=== PATIENT | female | born 2000 | race Caucasian/White ===

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

== ENCOUNTER 2018-03-14 14:05 | Inpatient (IN) ==
[~2018-03-14 14:05] MED LIST: *HR* Nalbuphine 10 MG/ML AMPUL IVP PRN; Famotidine 20 MG/2 ML VIAL IVP PRN; Naloxone 0.4 MG/ML INJ IVP PRN; Ondansetron 4 MG/2 ML VIAL IVP PRN; miSOPROStol 100 MCG TABLET PO ONE
[2018-03-14] MEDS ORDERED: Ringers Solution, Lactated 1,000 ML IVC SCH (14:15)
[2018-03-14 14:30] LABS: Basophils % 0.3 %; Eosinophils % 0.2 %; Hemoglobin 11.8 g/dL (11.5-15.4); Immature Granulocytes % 1.5 % (0-4); Lymphocytes # 1.8 K/mcL (0.6-4.6); Lymphocytes % 13.4 %; Mean Corpuscular HGB Conc 33.7 g/dL (31.6-35.5); Mean Corpuscular Hemoglobin 26.1 pg (28.0-33.3); Mean Corpuscular Volume 77.4 fL (83.0-100.0); Mean Platelet Volume 13.6 fL (9.4-12.4); Monocytes % 7.7 %; Neutrophils # 10.1 K/mcL (1.6-8.9); Platelet Count 131 K/mcL (140-400); Red Blood Count 4.52 M/mcL (3.82-4.97); Red Cell Distribution Width 13.6 % (11.5-14.5); Segmented Neutrophils % 76.9 %
--- NOTE | 2018-03-14 14:53 | OB/GYN History & Physical ---
Date of Encounter: 03/14/18 Time of Encounter: 14:49 Assessment and Plan (1) 38 weeks gestation of Current visit: Yes Status: Acute Admitted for delivery (2) Rh negative state in antepartum period Current visit: Yes Status: Acute Rhogam evaluation following delivery (3) Spontaneous rupture of membranes Current visit: Yes Status: Acute admitted for delivery (4) Gestational diabetes mellitus treated with oral hypoglycemic therapy Current visit: Yes Status: Acute Glucose level on admission accuchecks Q 4 hours or prn History of Present Illness Chief complaint: Spontaneous rupture of membranes HPI: Ms. Hassan is a 17 year old female at 38w6d presents to labor and delivery with ruptured membranes. Patient reports she was taking a nap and had a large gush of fluid. Patient states she has continued to leak since. Patient reports water broke around 1245. Patient denies any color or odor. Patient reports contractions were getting stronger and closer together. Blood type:A negative Rubella: Immune Hep B: Non-reactive GBS: Negative Past Med Surg Social Fam HX - Past Medical History Source: patient Medical history: no medical history Psychiatric history: anxiety - Past Surgical History Surgical History: other Additional surgical history: T&A - Social History Smoking Status: Former smoker Smokeless Tobacco Status: No Alcohol use: none Drug use: none - Family History Mother Adopted: No Living Status: Still Living Hx Family Cardiac Disorders: Yes (HTN) Hx Family Respiratory Disorders: No Hx Family Cancer: No Hx Family GI Disorders: No Hx Family Endocrine Disorder: No Hx Family Neuromuscular Disorders: No Hx Family Neurologic Disorders: No Hx Family HEENT Disorders: No Hx Family Autoimmune Disorders: No Grandmother Living Status: Still Living Hx Family Cardiac Disorders: No Hx Family Respiratory Disorders: No Hx Family Cancer: No Hx Family GI Disorders: No Hx Family Genitourinary Disorders: No Hx Family Endocrine Disorder: No Hx Family Musculoskeletal Disorders: No Hx Family Neuromuscular Disorders: No Hx Family Neurologic Disorders: No Hx Family HEENT Disorders: No Hx Family Autoimmune Disorders: No Hx Family Reproductive Disorders: No Hx Family Psychosocial Disorders: No Hx Family Medical Disorders: No Obstetrical History - Pregnancies : 1 Para: 0 Term: 0 : 0 Ab's: 0 Livin Medications and Allergies Vit Calc,Iron,Folic [ Vitamins] 1 tab PO DAILY 11/14/17 [ History] Sertraline [Zoloft] 36 mg PO DAILY 11/14/17 [History] metFORMIN [Glucophage] 500 mg PO BID 03/14/18 [History] 3 Allergy/AdvReac Type Severity Reaction Status Date / Time No Known Allergies Allergy Verified 03/14/18 14:36 Review of System OB - Constitutional Constitutional ROS IM: no fever(s), no headache(s) - Cardiovascular Cardiovascular: no lightheadedness, no palpitations, no syncope - Gastrointestinal Gastrointestinal: no abdominal pain, no constipation, no diarrhea, no heartburn , no nausea, no vomiting - Genitourinary Genitourinary: vaginal discharge (per HPI), no abnormal vaginal bleeding, no dysuria, no flank pain, no urinary frequency, no urinary urgency, no vaginal odor, no vaginal pruritis Exam - Constitutional Constitutional: well developed, well nourished, no acute distress, average body habitus - HEENT HEENT: Normocephaly, Mucus Membranes Moist - Neck Neck exam: full ROM, normal inspection, supple - Lungs Respiratory exam: CTAB - Cardiovascular Cardiovascular exam: RRR, +S1, +S2 - Abdomen Abdomen: Present: bowel sounds normal, gravid, non tender - Extremities Extremities exam: full ROM, normal capillary refill, normal inspection Deep Tendon Reflex Grade: 2+ Normal - Cervix Dilation: 3 (per RN) Effacement: 80 Station: -1 - Uterus Uterus exam: Present: normal size, normal contour - Anus/Rectum Anus/Rectum: Present: normal perianal skin - Comments Comments: FHR 140 bpm moderate variability +15x15 accels no decels noted. Contractions 2.5 -3 min apart. Cat. 1 tracing Results Result Diagrams: 03/14/18 14:10 Abnormal lab results WBC 13.2 K/mcL (4.3-11.1) H 03/14/18 14:10 Hct 35.0 % (35.3-44.9) L 03/14/18 14:10 MCV 77.4 fL (83.0-100.0) L 03/14/18 14:10 MCH 26.1 pg (28.0-33.3) L 03/14/18 14:10 Plt Count 131 K/mcL (140-400) L 03/14/18 14:10 MPV 13.6 fL (9.4-12.4) H 03/14/18 14:10 Neutrophils # 10.1 K/mcL (1.6-8.9) H 03/14/18 14:10 All other labs normal. - VTE Reasons for not Prescribing Prophylaxis: Treatment not Indicated - Low risk for VTE
[2018-03-14 14:57] LABS: Glucose 100 mg/dL (70-105)
[2018-03-14 15:01] LABS: Amphetamine Screen,Urine Negative ng/mL (Cutoff=1000); Barbiturate Screen,Urine Negative ng/mL (Cutoff=200); Benzodiazepines Screen,Urine Negative ng/mL (Cutoff=200); Cannabinoid Screen,Urine Negative ng/mL (Cutoff = 50); Opiate Screen,Urine Negative ng/mL (Cutoff=300); Phencyclidine Screen,Urine Negative ng/mL (Cutoff=25)
[2018-03-14 15:35] LABS: Cocaine Screen,Urine Negative ng/mL (Cutoff= 300)
[2018-03-14] MEDS ORDERED: Bupivacaine-MPF 0.25% 10 ML VIAL EP ONE (16:02)
[2018-03-14] MEDS ORDERED: *HR* FentaNYL (PF) 100 MCG/2 ML VIAL EP ONE (16:02)
[2018-03-14] MEDS ORDERED: *HR* FentaNYL (PF) 100 MCG/2 ML VIAL ONE (16:13)
[2018-03-14] MEDS ORDERED: Lidocaine -MPF 2% 5 ML VIAL ONE (16:13)
[2018-03-14] MEDS ORDERED: Bupivacaine-MPF 0.25% 10 ML VIAL ONE (16:13)
[2018-03-14] MEDS ORDERED: Epidural Premix (fent/bupiv) 110 ML EP SCH (16:15)
--- NOTE | 2018-03-14 16:49 | Anesthesia Evaluation PreOp ---
Date of Encounter: 03/14/18 Time of Encounter: 16:04 - Past History Planned Operation: labor epidural Cardiac History: Denies any Significant Hx Pulmonary History: Former smoker (smoked for 5-6 years prior to . Denies any disease.) [employer]DD [employer] WORKER History: Other (anxiety/depression.) Other Medical History: Denies Any Significant HX Anesthesia History: No Prior Anesthetic Complications (never had GA. No family history of problems with anesthesia.) : Yes Alcohol Use: none Drug use: none Medications and Allergies Vit Calc,Iron,Folic [ Vitamins] 1 tab PO DAILY 11/14/17 [ History] Sertraline [Zoloft] 36 mg PO DAILY 11/14/17 [History] metFORMIN [Glucophage] 500 mg PO BID 03/14/18 [History] 3 Allergy/AdvReac Type Severity Reaction Status Date / Time No Known Allergies Allergy Verified 03/14/18 14:36 - Meds/Allergy Pre-op Review Medications Reviewed: Yes Allergies Reviewed: Yes Beta Blockers on Current Med List: No Anesthesia Results - Labs 03/14/18 14:10 03/14/18 14:10 Anesthesia Exam 146/99, 109, 18. FHTs 120s. Height: 5'8" Weight: 107kg NPO (# of Hours): >8 Pain Scale: 9 Pain Scale Used: Numeric (1 - 10) - HEENT Pupil (Motor): Pupils equal Mallampati: II Teeth: Normal Oral Opening: Greater than 3 - ODD [employer] WORK[employer] LOC: Oriented ODD [employer] WORKER Motor: Normal RUE, Normal LUE, Normal RLE, Normal LLE, Normal Face ODD [employer] WORK[employer] Sensory: Normal: RUE, LUE, RLE, LLE, Face - Cardiac Rhythm: Regular - Pulmonary Breath Sounds: bilateral Clear Respiratory Effort: Symmetrical Anesthesia Assess/Plan ASA Score: 3 Modified Adah Scale for Level of Consciousness: Cooperative, oriented, and tranquil Anesthetic Plan: Regional Monitoring Plan: Standard Monitors
--- NOTE | 2018-03-14 16:55 | Anesthesia Procedures ---
Date of Encounter: 03/14/18 Time of Encounter: 16:16 Procedures: Anesthesia - Epidural/Spinal Patient ID/Chart reviewed: Yes Patient examined: Yes OB Eval: Gestational age: 38 OB Eval: : 1 OB Eval: Hx Para: 0 OB Eval: Dilated at (cm): 3 OB Eval: Contractions: Non-stressed pattern Consent Obtained: Yes Supplemental Oxygen: None/Room Air Site Prep: Aseptic Technique, Sterile prep and drape, Povidone-Iodine 1% Patient position: upright Local Anesthetic: Lidocaine 1% Amount of Local Anesthetic used: 5 Touhy Needle Gauge: 18 Touhy Needle Depth (cm): 8 Catheter Depth at Skin (cm): 20 Test Dose (1.5% Lido + Epi): Volume given (mls): 3 Test Dose Result: Negative Loading Dose: 0.25% Marcaine (mls): 8 Loading Dose: Fentanyl (mcg): 100 Loading Dose Administered: Thru Catheter Infusion Med: 0.125% Bupivacaine w/ 2 mcg/ml Fentanyl Infusion Rate (mls/hr): [address]: Tegaderm, Tape Interspace Used: L3-L4 Loss of Resistance (UNRULY): Yes Blood: No CSF: No Paresthesia: No Vitals + FHT's: 3 Vital Signs Time 1616 1635 1640 1645 BP 146/99 143/83 140/83 128/72 Pulse 109 126 97 96 FHTs 130 120 120 120
[2018-03-14] MEDS ORDERED: Oxytocin 20 units/ LR 1000 mL 20 UNIT/1,000 ML BAG IVC SCH (18:15)
[2018-03-14 19:02] LABS: Alanine Aminotransferase 5 Units/L (7-52); Aspartate Amino Transferase 12 Units/L (13-39); BUN/Creatinine Ratio 15 (6-26); Blood Urea Nitrogen 10 mg/dL (6-20); Lactate Dehydrogenase 162 Units/L (140-271); Uric Acid 4.5 mg/dL (2.3-7.6); eGFR For Non-African Americans > 60
--- NOTE | 2018-03-14 19:52 | OB Labor Progress Note ---
Date of Encounter: 03/14/18 Time of Encounter: 19:35 Labor Progress Note - Subjective Subjective: Patient resting. Patient denies any pain at this time. - Cervix Cervix: 7/100/0 - Heart Tones Heart Tones: 135 bpm moderate variability +15x15 accels no decels noted. Cat. 1 tracing. - [place]: 3-3.5 min apart - Interventions Interventions: SVE, patient repositioned - Plan Plan: Continue labor management. anticipate
--- NOTE | 2018-03-14 21:41 | OB/GYN Procedure Note ---
Delivery - Delivery Date: 03/14/18 Provider: Renee Salmon Intrapartum events: none Delivery induction: none Delivery augmentation: pitocin Delivery monitor: external FHT, internal uterine Anesthesia: epidural Quantitated Blood Loss: 400 - (s) A Infant Delivery Date: 03/14/18 Delivery Time: 21:09 Presentation: vertex Position: LUZ MARINA Route of delivery: Gender: Female Viability: Viable Pounds: 8 Ounces: 9 Weight Gram: 3875 kg at 1 minute: 8 at 5 mins: 9 Shoulder Dystocia: not encountered Specimens collected: cord blood Placenta: spontaneous, uterine exploration Cord: nuchal cord (X2), 3 umbilical vessels, delivered through nuchal - Repair Episiotomy: none Laceration Description: Periurethral (left periurethral ) - Complications Delivery complications: none - Disposition Mom disposition: stable in LDR [place] disposition: stable in LDR - Comments Comments: Called to LDR patient complete and +2 station. Patient placed in stirrups and prepped for vaginal delivery. Under maternal effort patient spontaneously delivered a viable female infant over an intact perineum. A nuchal cord x2 noted patient delivered through, no shoulder dystocia or meconium was encountered. Infant was placed on maternal abdomen. A left periurethral was noted and repaired with 3-0 vicryl. Cord was clamped and cut after pulsations ceased. Cord blood was collected. Placenta delivered spontaneously and intact. Pericare provided, all counts correct. Both mother and infant stable in LDR for 2 hour recovery.
[2018-03-14] MEDS ORDERED: miSOPROStol 100 MCG TABLET PO STA (22:31)
[2018-03-15] MEDS ORDERED: Benzocaine/Menthol 56 GM AEROSOL SPRAY TP PRN (00:02)
[2018-03-15] MEDS ORDERED: Rho Immune Globulin 1,500 UNIT SYRINGE IM PRN (00:02)
[2018-03-15] MEDS ORDERED: Oxytocin 20 units/ LR 1000 mL 20 UNIT/1,000 ML BAG IVC SCH (00:02)
[2018-03-15] MEDS ORDERED: Acetaminophen 325 MG TABLET PO PRN (00:02)
--- NOTE | 2018-03-15 08:34 | OB/GYN Progress Note ---
Date of Encounter: 03/15/18 Time of Encounter: 08:31 - Assessment and Plan (1) Vaginal delivery Current Visit: Yes Status: Acute Pt meeting milestones. (2) Gestational diabetes mellitus treated with oral hypoglycemic therapy Current Visit: Yes Status: Acute Accuchecks appropriate in labor. Plan for fasting glucose in am. (3) Rh negative state in antepartum period Current Visit: Yes Status: Acute Rhogam prior to discharge. Baby AB positive. Subjective - Subjective Interval history: Pt reports mild back pain. No other complaints. Patient reports: appetite normal, voiding normally, pain well controlled, ambulating normally : doing well, bottle feeding Objective - Latest Vital Signs Latest vital signs: Vital Signs Temp Pulse Resp BP Pulse Ox 03/15/18 02:25 98.5 F 99 16 140/90 100 03/15/18 01:05 97.4 F L 107 14 139/87 100 03/15/18 00:10 99.2 F 91 14 154/54 100 Intake and Output 03/14/18 03/15/18 03/15/18 23:59 07:59 15:59 Output Total 550 / 550 750 / 750 Balance -550 / -550 -750 / -750 Output: Urine 750 / 750 Catheter 550 / 550 Urethral (Reed) 550 / 550 Other: Weight 102.5 kg Blood Glucose* 106 Patient Weight 03/15/18 23:59 Weight 102.5 kg - Exam Lungs: bilateral: normal Chest: Normal S1, Normal S2 Extremities: Present: edema (mild LE edema bilaterally, no erythema or warmth) Abdomen: Present: soft Uterus: Present: firm Uterus Position: 1 Finger Below Umbilicus - Labs Labs: Laboratory Results - last 24 hr 03/14/18 03/14/18 03/14/18 14:10 14:10 14:16 WBC 13.2 H RBC 4.52 Hgb 11.8 Hct 35.0 L MCV 77.4 L MCH 26.1 L MCHC 33.7 RDW 13.6 Plt Count 131 L MPV 13.6 H Immature Gran % 1.5 Seg Neutrophils % 76.9 Lymphocytes % 13.4 Monocytes % 7.7 Eosinophils % 0.2 Basophils % 0.3 Neutrophils # 10.1 H Lymphocytes # 1.8 Monocytes # 1.0 Eosinophils # 0.0 Basophils # 0.0 BUN 10 Creatinine 0.67 Est GFR ( Amer) > 60 Est GFR (Non-Af Amer) > 60 BUN/Creatinine Ratio 15 Glucose 100 POC Glucose Uric Acid 4.5 AST 12 L ALT 5 L Lactate Dehydrogenase 162 Urine Opiates Screen Negative Ur Barbiturates Screen Negative Ur Phencyclidine Scrn Negative Ur Amphetamines Screen Negative U Benzodiazepines Scrn Negative Urine Cocaine Screen Negative U Marijuana (THC) Screen Negative Ur Drug Screen Interp See Below Screen Baby's Blood Type Mother's Blood Type Rhogam Indicated Rhogam Req for Mother 03/14/18 03/14/18 03/14/18 18:07 21:58 22:17 WBC RBC Hgb Hct MCV MCH MCHC RDW Plt Count MPV Immature Gran % Seg Neutrophils % Lymphocytes % Monocytes % Eosinophils % Basophils % Neutrophils # Lymphocytes # Monocytes # Eosinophils # Basophils # BUN Creatinine Est GFR ( Amer) Est GFR (Non-Af Amer) BUN/Creatinine Ratio Glucose POC Glucose 90 106 H Uric Acid AST ALT Lactate Dehydrogenase Urine Opiates Screen Ur Barbiturates Screen Ur Phencyclidine Scrn Ur Amphetamines Screen U Benzodiazepines Scrn Urine Cocaine Screen U Marijuana (THC) Screen Ur Drug Screen Interp Screen NEGATIVE Baby's Blood Type AB RH POSITIVE Mother's Blood Type A RH NEGATIVE Rhogam Indicated YES Rhogam Req for Mother 1 03/15/18 04:23 WBC RBC Hgb Hct MCV MCH MCHC RDW Plt Count MPV Immature Gran % Seg Neutrophils % Lymphocytes % Monocytes % Eosinophils % Basophils % Neutrophils # Lymphocytes # Monocytes # Eosinophils # Basophils # BUN Creatinine Est GFR ( Amer) Est GFR (Non-Af Amer) BUN/Creatinine Ratio Glucose 133 H POC Glucose Uric Acid AST ALT Lactate Dehydrogenase Urine Opiates Screen Ur Barbiturates Screen Ur Phencyclidine Scrn Ur Amphetamines Screen U Benzodiazepines Scrn Urine Cocaine Screen U Marijuana (THC) Screen Ur Drug Screen Interp Screen Baby's Blood Type Mother's Blood Type Rhogam Indicated Rhogam Req for Mother
[2018-03-15] MEDS: Ibuprofen 600 MG TABLET PO PRN (08:56)
[2018-03-15] MEDS: Prenatal Vit/FA 1 EACH TABLET PO SCH (08:56)
[2018-03-15 09:35] LABS: Basophils % 0.2 %; Eosinophils % 0.1 %; Lymphocytes % 13.2 %
[2018-03-15 09:37] LABS: Hematocrit 26.8 % (35.3-44.9); Hemoglobin 8.9 g/dL (11.5-15.4); Immature Granulocytes % 1.2 % (0-4); Immature Platelets 15.9 % (1.1-6.1); Mean Corpuscular HGB Conc 33.2 g/dL (31.6-35.5); Mean Corpuscular Hemoglobin 25.5 pg (28.0-33.3); Mean Corpuscular Volume 76.8 fL (83.0-100.0); Mean Platelet Volume 13.7 fL (9.4-12.4); Monocytes % 8.1 %; Red Blood Count 3.49 M/mcL (3.82-4.97); Segmented Neutrophils % 77.2 %
[2018-03-15 10:00] LABS: Lymphocytes # 1.5 K/mcL (0.6-4.6); Platelet Count 84 K/mcL (140-400)
[2018-03-15 10:06] LABS: Platelet Estimate Slight Decrease (Normal)
[2018-03-16] MEDS: Ibuprofen 600 MG TABLET PO PRN (05:12)
[2018-03-16 08:00] VITALS: BP 135/81
[2018-03-16] MEDS: Prenatal Vit/FA 1 EACH TABLET PO SCH (08:05)
--- NOTE | 2018-03-16 09:50 | Discharge Summary ---
Date of Encounter: 03/16/18 Time of Encounter: 09:47 - Discharge Diagnosis (1) anemia Priority: Secondary Status: Acute Comments: Will discharge home on iron (2) Vaginal delivery Priority: Primary Status: Acute Comments: Stable meeting all PP milestones, bottle feeding, bleeding minimal, desires discharge (3) hypertension Priority: Secondary Status: Acute Comments: Will discharge home on labetalol, 2 week BP check in office - Discharge Medications Prescriptions: Ibuprofen [Motrin] 600 mg PO Q6HR PRN #60 tablet PRN Reason: Cramping Docusate [Colace] 100 mg PO BID #60 capsule Ferrous Sulfate 325 mg PO DAILY #60 tablet Labetalol [Trandate] 100 mg PO BID #60 tablet Home Medications: Vit Calc,Iron,Folic [ Vitamins] 1 tab PO DAILY 11/14/17 [ History] Sertraline [Zoloft] 37.5 mg PO DAILY 11/14/17 [History] Acetaminophen [Tylenol] 650 mg PO Q6HR PRN tablet 03/16/18 [Rx] Benzocaine/Menthol Mouthcard [Dermoplast Mouthcard] 1 appl TP QID PRN aerosol 03/16/18 [Rx] Docusate [Colace] 100 mg PO BID #60 capsule 03/16/18 [Rx] Ferrous Sulfate 325 mg PO DAILY #60 tablet 03/16/18 [Rx] Ibuprofen [Motrin] 600 mg PO Q6HR PRN #60 tablet 03/16/18 [Rx] Labetalol [Trandate] 100 mg PO BID #60 tablet 03/16/18 [Rx] Vit/FA 1 each PO DAILY tablet 03/16/18 [Rx] Allergies/Adverse Reactions: 3 Allergy/AdvReac Type Severity Reaction Status Date / Time No Known Allergies Allergy Verified 03/14/18 14:36 Data Procedures and tests throughout hospitalization: Laboratory Tests 03/14/18 03/14/18 03/14/18 14:10 14:10 14:16 WBC 13.2 H RBC 4.52 Hgb 11.8 Hct 35.0 L MCV 77.4 L MCH 26.1 L MCHC 33.7 RDW 13.6 Plt Count 131 L MPV 13.6 H Immature Gran % 1.5 Seg Neutrophils % 76.9 Lymphocytes % 13.4 Monocytes % 7.7 Eosinophils % 0.2 Basophils % 0.3 Neutrophils # 10.1 H Lymphocytes # 1.8 Monocytes # 1.0 Eosinophils # 0.0 Basophils # 0.0 Platelet Estimate Immature Plt Fraction BUN 10 Creatinine 0.67 Est GFR ( Amer) > 60 Est GFR (Non-Af Amer) > 60 BUN/Creatinine Ratio 15 Glucose 100 POC Glucose Uric Acid 4.5 AST 12 L ALT 5 L Lactate Dehydrogenase 162 Urine Opiates Screen Negative Ur Barbiturates Screen Negative Ur Phencyclidine Scrn Negative Ur Amphetamines Screen Negative U Benzodiazepines Scrn Negative Urine Cocaine Screen Negative U Marijuana (THC) Screen Negative Ur Drug Screen Interp See Below Specimen Rejected Screen Baby's Blood Type Mother's Blood Type Rhogam Indicated Rhogam Req for Mother 03/14/18 03/14/18 03/14/18 18:07 21:58 22:17 WBC RBC Hgb Hct MCV MCH MCHC RDW Plt Count MPV Immature Gran % Seg Neutrophils % Lymphocytes % Monocytes % Eosinophils % Basophils % Neutrophils # Lymphocytes # Monocytes # Eosinophils # Basophils # Platelet Estimate Immature Plt Fraction BUN Creatinine Est GFR ( Amer) Est GFR (Non-Af Amer) BUN/Creatinine Ratio Glucose POC Glucose 90 106 H Uric Acid AST ALT Lactate Dehydrogenase Urine Opiates Screen Ur Barbiturates Screen Ur Phencyclidine Scrn Ur Amphetamines Screen U Benzodiazepines Scrn Urine Cocaine Screen U Marijuana (THC) Screen Ur Drug Screen Interp Specimen Rejected Screen NEGATIVE Baby's Blood Type AB RH POSITIVE Mother's Blood Type A RH NEGATIVE Rhogam Indicated YES Rhogam Req for Mother 1 03/15/18 03/15/18 03/15/18 04:23 07:53 09:13 WBC 11.7 H RBC 3.49 L Hgb 8.9 L D Hct 26.8 L MCV 76.8 L MCH 25.5 L MCHC 33.2 RDW 14.0 Plt Count 84 L MPV 13.7 H Immature Gran % 1.2 Seg Neutrophils % 77.2 Lymphocytes % 13.2 Monocytes % 8.1 Eosinophils % 0.1 Basophils % 0.2 Neutrophils # 9.0 H Lymphocytes # 1.5 Monocytes # 1.0 Eosinophils # 0.0 Basophils # 0.0 Platelet Estimate Slight Decrease L Immature Plt Fraction 15.9 H BUN Creatinine Est GFR ( Amer) Est GFR (Non-Af Amer) BUN/Creatinine Ratio Glucose 133 H POC Glucose Uric Acid AST ALT Lactate Dehydrogenase Urine Opiates Screen Ur Barbiturates Screen Ur Phencyclidine Scrn Ur Amphetamines Screen U Benzodiazepines Scrn Urine Cocaine Screen U Marijuana (THC) Screen Ur Drug Screen Interp Specimen Rejected Volume Screen Baby's Blood Type Mother's Blood Type Rhogam Indicated Rhogam Req for Mother Labs on day of discharge: Labs from last 24 hours 03/15/18 09:13 WBC 11.7 H RBC 3.49 L Hgb 8.9 L D Hct 26.8 L MCV 76.8 L MCH 25.5 L MCHC 33.2 RDW 14.0 Plt Count 84 L MPV 13.7 H Immature Gran % 1.2 Seg Neutrophils % 77.2 Lymphocytes % 13.2 Monocytes % 8.1 Eosinophils % 0.1 Basophils % 0.2 Neutrophils # 9.0 H Lymphocytes # 1.5 Monocytes # 1.0 Eosinophils # 0.0 Basophils # 0.0 Platelet Estimate Slight Decrease L Immature Plt Fraction 15.9 H Date of admission: 03/14/18 14:05 Primary care physician: PCP NONE Consults: 03/15/18 00:02 Consult to Lapping Machine Tender [CONS] Routine Reason for SW Consult: teen mother Discharging clinician: Miranda Maya Anticipated date of discharge: 03/16/18 - Patient Status Disposition: Home, Self-Care Condition: Good Functional capacity at discharge: independent ambulation Overall status at discharge: patient is back to baseline - Discharge Instructions Instructions: Chronic Hypertension (DC), Anemia (GEN) Follow Up With: NONE,PCP [Primary Care Provider] - Renee Salmon CNM [Non-Partnered Physician] - - Diet and Activity Activity: resume usual activities as tolerated Diet: regular diet Hospital Course Reason for admission: IUP at term Delivery: Episiotomy: none Laceration: other complications: none Discharge diagnosis: IUP at term delivered baby: female Hospital course: Delivery - Delivery Date: 03/14/18 Provider: Renee Salmon Intrapartum events: none Delivery induction: none Delivery augmentation: pitocin Delivery monitor: external FHT, internal uterine Anesthesia: epidural Quantitated Blood Loss: 400 - Infant (s) Infant A Infant Delivery Date: 03/14/18 Infant Delivery Time: 21:09 Presentation: vertex Position: LUZ MARINA Route of delivery: Gender: Female Viability: Viable Pounds: 8 Ounces: 9 Weight Gram: 3875 kg at 1 minute: 8 at 5 mins: 9 Shoulder Dystocia: not encountered Specimens collected: cord blood Placenta: spontaneous, uterine exploration Cord: nuchal cord (X2), 3 umbilical vessels, delivered through nuchal - Repair Episiotomy: none Laceration Description: Periurethral (left periurethral ) - Complications Delivery complications: none - Disposition Mom disposition: stable inPP and appropriate for discharge Time Attestation: Total time spent providing and/or coordinating discharge services: Time Spent: Less than 30 minutes Exam - Constitutional Vitals: Temp Pulse Resp BP Pulse Ox 98.2 F 82 14 135/81 98 03/16/18 07:59 03/16/18 07:59 03/16/18 07:59 03/16/18 07:59 03/16/18 07:59 General appearance IM: A&O X 3 - Respiratory Respiratory exam: Present: CTAB - Cardiovascular Cardiovascular exam IM: Present: RRR - GI/Abdominal GI/Abdominal exam IM: normal bowel sounds, soft - Uterine Tone: Firm Uterus Position: At Umbilicus - Extremities Exam Extremities exam IM: Present: normal capillary refill, pedal edema - Neurological Exam Neurological exam: normal gait, oriented X3 - Psychiatric Additional comments: Reports good mood
== END 2018-03-16 13:54 | disposition home or self-care (01) | DRG 774 ==
LOC: 1NENULAB → 1NENUOBS 23:32
PROVIDERS: ADMIT Obstetrics & Gynecology; ATTEND Obstetrics & Gynecology

== ENCOUNTER 2020-09-06 22:04 | Observation (INO) ==
[2020-09-06 22:44] LABS: Amorphous Sediment,Urine Few per hpf (None-Few); Bacteria,Urine Few per hpf (None-Few); Bilirubin,Urine Negative (Negative); Blood,Urine Negative (Negative); Clarity,Urine Turbid (Clear); Color,Urine Light-Yellow (Yellow); Glucose,Urine (UA) Normal (Normal); Ketones,Urine Negative (Negative); Leukocyte Esterase,Urine Large (Negative); Mucus,Urine Few per lpf (None-Few); Nitrite,Urine Negative (Negative); Protein,Urine Negative (Neg-Trace); Specific Gravity,Urine 1.009 (1.010-1.025); Squamous Epithelial Cell,Urine Moderate per hpf (None-Few); Urobilinogen,Urine Normal (Normal); WBC,Urine 30-50 per hpf (0-3)
[2020-09-07] MEDS ORDERED: Calcium Gluconate 1,000 MG/10 ML VIAL ONE (00:50)
[2020-09-07] MEDS ORDERED: Ringers Solution, Lactated 1,000 ML ONE (00:50)
[2020-09-07] MEDS ORDERED: Ringers Solution, Lactated 1,000 ML IVC ONE (00:51)
[2020-09-07] MEDS ORDERED: Magnesium Sulf 20 gm/SW 500mL 20 GM/500 ML IV.SOLN IVC SCH (01:00)
[2020-09-07] MEDS ORDERED: Ringers Solution, Lactated 1,000 ML IVC SCH (01:00)
[2020-09-07] MEDS ORDERED: CeFAZolin 2 GM/120 ML BAG IVPB SCH (01:00)
[2020-09-07] MEDS ORDERED: Betamethasone Acet/SodPhos 30 MG/5 ML VIAL IM SCH (01:00)
[2020-09-07 01:36] LABS: Eosinophils % 0.3 %; Red Cell Distribution Width 16.1 % (11.5-14.5)
[2020-09-07 01:38] LABS: Basophils % 0.3 %; Hematocrit 38.3 % (35.3-44.9); Hemoglobin 11.7 g/dL (11.5-15.4); Immature Granulocytes % 0.8 % (0-4); Immature Platelets 17.6 % (1.1-6.1); Lymphocytes # 2.3 K/mcL (0.6-4.6); Lymphocytes % 21.5 %; Mean Corpuscular HGB Conc 30.5 g/dL (31.6-35.5); Mean Corpuscular Hemoglobin 23.5 pg (28.0-33.3); Mean Corpuscular Volume 77.1 fL (83.0-100.0); Mean Platelet Volume 13.1 fL (9.4-12.4); Monocytes # 0.8 K/mcL (0.0-1.3); Monocytes % 7.8 %; Neutrophils # 7.5 K/mcL (1.6-8.9); Platelet Count 123 K/mcL (140-400); Red Blood Count 4.97 M/mcL (3.82-4.97); Segmented Neutrophils % 69.3 %; White Blood Count 10.8 K/mcL (4.3-11.1)
[2020-09-07] MEDS ORDERED: Ondansetron 4 MG/2 ML VIAL IVP ONE (02:07)
[2020-09-07] MEDS ORDERED: Ondansetron 4 MG/2 ML VIAL ONE (02:08)
== END 2020-09-07 02:30 | disposition short-term general hospital (02) ==
LOC: 1NENULAB
PROVIDERS: ADMIT Registered Nurse; ATTEND Registered Nurse

== ENCOUNTER 2022-04-28 10:47 | Observation (INO) | END 2022-04-28 13:30 | disposition home or self-care (01) | LOC: 1NENULAB | PROVIDERS: ADMIT Advanced Practice Midwife; ATTEND Advanced Practice Midwife ==

== ENCOUNTER 2022-05-19 16:14 | Inpatient (IN) ==
[2022-05-19 15:51] LABS: Basophils % 0.3 %; Hemoglobin 9.6 g/dL (11.5-15.4); Mean Corpuscular Volume 67.5 fL (83.0-100.0)
[2022-05-19 15:52] LABS: Eosinophils % 0.1 %; Hematocrit 32.8 % (35.3-44.9); Immature Granulocytes % 0.9 % (0-4); Immature Platelets 20.7 % (1.1-6.1); Lymphocytes # 1.8 K/mcL (0.6-4.6); Lymphocytes % 16.8 %; Mean Corpuscular HGB Conc 29.3 g/dL (31.6-35.5); Mean Corpuscular Hemoglobin 19.8 pg (28.0-33.3); Monocytes # 0.6 K/mcL (0.0-1.3); Monocytes % 5.1 %; Neutrophils # 8.3 K/mcL (1.6-8.9); Platelet Count 125 K/mcL (140-400); Red Blood Count 4.86 M/mcL (3.82-4.97); Red Cell Distribution Width 17.3 % (11.5-14.5); Segmented Neutrophils % 76.8 %; White Blood Count 10.8 K/mcL (4.3-11.1)
[2022-05-19 16:12] LABS: Alanine Aminotransferase 5 Units/L (7-52); Aspartate Amino Transferase 11 Units/L (13-39); BUN/Creatinine Ratio 15 (6-26); Blood Urea Nitrogen 9 mg/dL (6-20); Lactate Dehydrogenase 169 Units/L (140-271); Uric Acid 3.1 mg/dL (2.3-7.6)
[~2022-05-19 16:14] MED LIST changes: +*HR* Labetalol 20 MG/4 ML SYRINGE IVP PRN; +*HR* Nalbuphine 10 MG/ML AMPUL IV PRN; -*HR* Nalbuphine 10 MG/ML AMPUL IVP PRN; +Azithromycin 500 MG in 0.9 % Sodium Chloride 250 ML IVPB PRN; +Lidocaine 1% 20 ML MDV INFILT PRN; +Metoclopramide 10 MG/2 ML VIAL IVP PRN; +Ringers Solution, Lactated 1,000 ML ONE; -miSOPROStol 100 MCG TABLET PO ONE
[2022-05-19] MEDS ORDERED: Ringers Solution, Lactated 1,000 ML IVC SCH (16:15)
[2022-05-19] MEDS ORDERED: Oxytocin 30 UNIT/503 ML BAG IVC SCH (16:15)
[2022-05-19 16:18] LABS: Microcytosis Present (Not Present); Reactive Lymphocytes Present (Not Present)
[2022-05-19] MEDS ORDERED: Ropivacaine/PF 0.2% 20 ML VIAL ONE (19:39)
[2022-05-19] MEDS ORDERED: Epidural Premix (fent/bupiv) 110 ML EP ONE (20:04)
[2022-05-19] MEDS ORDERED: Ondansetron 4 MG/2 ML VIAL IVP PRN (21:57)
[2022-05-19] MEDS ORDERED: Ropivacaine/PF 0.2% 20 ML VIAL EP ONE (21:57)
[2022-05-19] MEDS ORDERED: Naloxone 0.4 MG/ML INJ IVP PRN (21:57)
[2022-05-19] MEDS ORDERED: EPHEDrine sulfate 50 MG/10 ML VIAL IVP PRN (21:57)
[2022-05-19] MEDS ORDERED: Epidural Premix (fent/bupiv) 110 ML EP SCH (22:00)
[2022-05-20] MEDS ORDERED: Oxytocin 30 UNIT/503 ML BAG IVC SCH (02:02)
[2022-05-20] MEDS ORDERED: Lanolin 7 G OINT...G. TP PRN (02:02)
[2022-05-20] MEDS ORDERED: OXYTOCIN/RINGERS LACTATE 10 UNIT/166.6 ML BAG IVC ONE (02:02)
[2022-05-20] MEDS ORDERED: Ondansetron ODT 4 MG TAB.RAPDIS SL PRN (02:02)
[2022-05-20] MEDS ORDERED: Benzocaine/Menthol 56 GM AEROSOL SPRAY TP PRN (02:02)
[2022-05-20] MEDS ORDERED: Rho Immune Globulin 1,500 UNIT SYRINGE IM PRN (02:02)
[2022-05-20] MEDS: Prenatal Vit/FA 1 EACH TABLET PO SCH (07:57)
[2022-05-20] MEDS: Ibuprofen 600 MG TABLET PO SCH ×3 (07:57→20:09)
[2022-05-20 19:12] VITALS: O2SAT 100
[2022-05-20] MEDS: Acetaminophen 325 MG TABLET PO SCH (20:09)
[2022-05-21] MEDS: Ibuprofen 600 MG TABLET PO SCH ×2 (03:12→07:50)
[2022-05-21 07:03] VITALS: BP 120/74; PULSE 88; TEMP 98.1
[2022-05-21] MEDS: Acetaminophen 325 MG TABLET PO SCH ×3 (07:50→08:40)
[2022-05-21] MEDS: Prenatal Vit/FA 1 EACH TABLET PO SCH (08:40)
== END 2022-05-21 11:05 | disposition home or self-care (01) | DRG 560 ==
LOC: 1NENULAB → 1NENUOBS 05-20 01:19
PROVIDERS: ADMIT Advanced Practice Midwife; ATTEND Advanced Practice Midwife